=== PATIENT | male | born 1975 | race Caucasian/White ===

== ENCOUNTER 2017-07-12 17:19 | Emergency (ER) | payer MEDICAID ==
[~2017-07-12] VITALS: Ht 165.1 cm; Wt 80.5 kg
[~2017-07-12 17:19] MED LIST: BACTDS PO; CEPH-443 PO; DENIES; HYDR-902 PO; IBUP800T25 PO
[2017-07-12 17:27] VITALS: Ht 165.1 cm; Wt 80.5 kg
[2017-07-12] MEDS ORDERED: LIDOCAINE 2%/EPI MPF (SDV) 20 ML VIAL INJ STA (17:59)
[2017-07-12] MEDS ORDERED: TRIMETHOPRIM/SULFAMETHOX (DS) TAB PO ONE (18:00)
[2017-07-12] MEDS ORDERED: IBUPROFEN 200 MG TAB PO ONE (18:00)
[2017-07-12] MEDS ORDERED: CEPHALEXIN 500 MG CAP PO ONE (18:00)
--- NOTE | 2017-07-12 18:20 | ERD ---
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 Patient reports symptoms 7 days. Patient is here with his who is forced him to come to emergency department today Patient reports pain is 7/10 on pain scale, throbbing, hot, difficulty ambulating. ROS All systems reviewed and are negative except as per history of present illness. Medications Home Meds Active Scripts Hydrocodone/Acetaminophen ([place] 10-325 Tablet) 1 Each Tablet, 1 TAB PO Q6H Y for PAIN, #7 TAB Prov:DOROTHEA DOUGLAS PA-C 11/10/16 Ibuprofen* (Motrin*) 800 Mg Tab, 800 MG PO Q6, #30 TAB Prov:DOROTHEA DOUGLAS PA-C 11/10/16 Cephalexin* (Keflex*) 500 Mg Capsule, 500 MG PO QID for 7 Days, CAP Prov:DOROTHEA DOUGLAS PA-C 11/10/16 Sulfamethoxazole-Trimethoprim* (Bactrim* DS) 800-160 Mg Tab, 1 TAB PO BID for 7 Days, TAB Prov:DOROTHEA DOUGLAS PA-C 11/10/16 Reported Medications [Denies] No Conflict Check 05/09/11 Allergies Allergies: Coded Allergies: No Known Drug Allergies (Verified Allergy, Mild, 05/09/11) PMhx/Soc History of Surgery: No Anesthesia Reaction: No Hx Neurological Disorder: No Hx Respiratory Disorders: No Hx Cardiac Disorders: No Hx Psychiatric Problems: No Hx Miscellaneous Medical Probl: No Hx Alcohol Use: No Hx Substance Use: No Hx Tobacco Use: No Physical Exam Vitals Vital Signs Date Time Temp Pulse Resp B/P Pulse Ox O2 Delivery O2 Flow Rate FiO2 07/12/17 17:27 100.5 106 20 117/73 97 Physical Exam Const: Well-nourished well-appearing well-hydrated no acute Head: Atraumatic Eyes: Normal Conjunctiva ENT: Normal External Ears, Nose and Mouth mucous membranes moist, Neck: Resp: Aspirations even and unlabored no respiratory distress Cardio: Abd: Skin: Right lateral calf presents with a 1 cm x 1 cm circumcised pustule soft and fluctuating on a 3 cm firm erythematous base. Site is hyper-tender to palpation Back: Ext: Neur: Awake and alert Psych: Normal Mood and Affect Results 24 hrs Current Medications Medications (Trade) Dose Ordered Sig/Vianney Route PRN Reason Start Time Stop Time Status Last Admin Dose Admin Cephalexin (Keflex) 500 mg ONCE ONCE PO 07/12/17 18:00 07/12/17 18:02 DC 07/12/17 18:12 Trimethoprim/ Sulfamethoxazole (Bactrim (Ds)) 1 tab ONCE ONCE PO 07/12/17 18:00 07/12/17 18:02 DC 07/12/17 18:12 Ibuprofen (Motrin) 400 mg ONCE ONCE PO 07/12/17 18:00 07/12/17 18:02 DC 07/12/17 18:12 Lidocaine/ Epinephrine (Xylocaine 2%/ Epi Mpf(Sdv)) 20 ml ONCE STAT INJ 07/12/17 17:59 07/12/17 18:02 DC Procedures/MDM Abscess Incision and Drainage with irrigation by me: Right lateral calf Location: Right lateral calf Anesthesia: Local 2% Lidocaine with epinephrine Technique: Irrigated. Disrupted loculations w/ instrumentation Packin cm sterile packing Complications: Neurovascularly intact post procedure This 41-year-old male patient presents to emergency room with a right lateral abscess. 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 I have little suspicion for necrotizing fasciitis, osteomyelitis, sebaceous cyst, or cancerous lesion. Symptoms and history consistent with a subcutaneous abscess. Incision and drainage performed by myself see above.Exam and w/u not consistent w/ sepsis, deep space infection, or foreign body.48 hour wound check. Scar minimization instructions given. Patient started on oral Keflex 500 mg and double strength Bactrim while in emergency department, 400 mg ibuprofen given for pain. Patient will be discharged with Keflex 500 4 times daily 10 days, Bactrim double strength 1 tab p.o. twice daily 7 days. Motrin 400 mg every 6 hours as needed pain. Leave dressing in place, return in 48 hours for wound reevaluation. If dressing becomes wet okay to change immediately. signs of infection which include increased pain, increased redness especially redness spreading towards your heart, post drainage or increased swelling. If there are any of these signs or if you are not sure return as soon as possible. I feel the patient is stable for discharge at this time. I have discussed results, examination findings, the treatment plan with the patient and family present prior to discharge. Indications for emergent reevaluation, side effects of medication were also discussed. All questions were answered. Patient verbalizes understanding and agrees with plan of care. Departure Diagnosis: Primary Impression: Abscess Condition: Good Patient Instructions: Abscess, Incision And Drainage Additional Instructions: Thank you for for coming to [facility] for your care today. Please ask your nurse or provider if you have questions about your care today and do not leave until all your questions have been answered. Please use any medications given as directed and follow-up with your doctor (or the doctor you were referred to) in the next 2-3 days. If you do not have a primary care doctor you may follow up at the [facility] (listed below). You may also use motrin and tylenol as needed for fever and/or pain unless instructed otherwise by your provider or nurse. Indications for more urgent follow-up have been discussed, but you may return to the Emergency Department at ANY time for any worrisome or worsening symptoms. If you have abdominal pain, please know that no test or exam you received is perfect and you should follow up within 8 hours for continued pain. If you had any imaging studies today, such as an X-Ray or CT Scan, these studies will be reviewed later by a radiologist. You will be called if there are important findings that were not identified today, so make sure the contact information you provided at registration is correct. If you received any narcotic pain control medicine today, such as Vicodin, Morphine or Dilaudid, your coordination and judgment may be affected for a number of hours. Please do not drive or operate heavy machinery, and you may want someone to assist you at home. If you were given a prescription for narcotic medication, be aware that it is very addictive- use sparingly and only if necessary. RICCI CHAVEZ Jul 12, 2017 18:19
[2017-07-12] MEDS ORDERED: CEPH-443 PO (18:52)
[2017-07-12] MEDS ORDERED: SULF1TAB31 PO (18:53)
[2017-07-12] MEDS ORDERED: IBUP400T22 PO (18:53)
== END 2017-07-12 19:10 | disposition home or self-care (01) ==
LOC: FTE 17:19
DX: L02.415 Cutaneous abscess of right lower limb (principal)
CPT/HCPCS: 10060; Z7502; Z7610

== ENCOUNTER 2017-07-16 19:14 | Emergency (ER) | payer MEDICAID ==
[~2017-07-16] VITALS: Ht 172.7 cm; Wt 81.5 kg
[~2017-07-16 19:14] MED LIST changes: +IBUP400T22 PO; +SULF1TAB31 PO
[2017-07-16 19:59] VITALS: Ht 172.7 cm; Wt 81.5 kg
[2017-07-16] MEDS ORDERED: CEPH-443 PO (21:29)
--- NOTE | 2017-07-16 21:44 | ERD ---
ER Documentation Chief Complaint Date/Time DATE: 07/16/17 TIME: 21:39 Chief Complaint right leg wound recheck HPI Patient is a 41-year-old male who presents to the emergency department for concerns of wound check. Patient was seen here on 07/12/17 and at that time underwent an I&D to his right lateral calf. Patient states he has been taking Bactrim however he denies taking the Keflex. He states he did not receive a prescription for Keflex despite his discharge paperwork indicating so. Patient states that the swelling and redness has improved. Patient reports minimal pain. Patient denies any fevers, chills, nausea, vomiting, worsening redness or swelling. 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 Medications Home Meds Active Scripts Cephalexin* (Keflex*) 500 Mg Capsule, 500 MG PO QID for 7 Days, CAP Prov:ARABELLA CORRALESC 07/16/17 Ibuprofen* (Motrin*) 400 Mg Tab, 400 MG PO Q6, #30 TAB Prov:KATHY,RICCI 07/12/17 Sulfamethoxazole/Trimethoprim* (Bactrim Ds* Tablet) 1 Each Tablet, 1 TAB PO BID for 7 Days, #14 TAB Prov:KATHY,RICCI 07/12/17 Cephalexin* (Keflex*) 500 Mg Capsule, 500 MG PO QID for 10 Days, CAP Prov:KATHY,RICCI 07/12/17 Hydrocodone/Acetaminophen ([place] 10-325 Tablet) 1 Each Tablet, 1 TAB PO Q6H Y for PAIN, #7 TAB Prov:DOROTHEA DOUGLASC 11/10/16 Ibuprofen* (Motrin*) 800 Mg Tab, 800 MG PO Q6, #30 TAB Prov:PRODOROTHEA TATUM-C 11/10/16 Cephalexin* (Keflex*) 500 Mg Capsule, 500 MG PO QID for 7 Days, CAP Prov:DOROTHEA DOUGLASC 11/10/16 Sulfamethoxazole-Trimethoprim* (Bactrim* DS) 800-160 Mg Tab, 1 TAB PO BID for 7 Days, TAB Prov:DOROTHEA DOUGLASC 11/10/16 Reported Medications [Denies] No Conflict Check 05/09/11 Allergies Allergies: Coded Allergies: No Known Drug Allergies (Verified Allergy, Mild, 07/16/17) PMhx/Soc Medical and Surgical Hx: pt denies Medical Hx, pt denies Surgical Hx History of Surgery: No Anesthesia Reaction: No Hx Neurological Disorder: No Hx Respiratory Disorders: No Hx Cardiac Disorders: No Hx Psychiatric Problems: No Hx Miscellaneous Medical Probl: No Hx Alcohol Use: Yes (occasional) Hx Substance Use: No Hx Tobacco Use: No Smoking Status: Never smoker Physical Exam Vitals Vital Signs Date Time Temp Pulse Resp B/P Pulse Ox O2 Delivery O2 Flow Rate FiO2 07/16/17 19:59 98.3 69 18 116/71 98 Physical Exam GENERAL: Well-developed, well-nourished male. Appears in no acute distress. HEAD: Normocephalic, atraumatic. EYES: Pupils are equally reactive bilaterally. EOMs grossly intact. No conjunctival erythema. ENT: Moist mucous membranes. No uvula deviation. No kissing tonsils. NECK: Supple. No meningismus. Normal range of motion of the neck. LUNG: Clear to auscultation bilaterally. No rhonchi, wheezing, rales or coarse breath sounds. HEART: Regular rate and rhythm. No murmurs, rubs or gallops. EXTREMITIES: Equal pulses bilaterally. No peripheral clubbing, cyanosis or edema. NEUROLOGIC: Alert and oriented. Moving all four extremities without any difficulty. Normal speech. Steady gait. SKIN: Normal color. Warm and dry. Right lateral calf with open abscess. Active yellow, purulent drainage. Surrounding area minimally erythematous. No warmth. No fluctuance. Procedures/MDM MEDICAL DECISION MAKING: This is a 41-year-old male who presents for a wound check for an abscess he had drained on 07-12-17. Patient reports taking only Bactrim. He did not receive a prescription for Keflex.. Vital signs were reviewed. Patient is afebrile. Active, yellow purulent discharge is noted from the abscess site. The wound does have opening thus no further incision and drainage is indicated. No induration or fluctuance is noted. Patient will be discharged home with a prescription of Keflex. Patient was advised to fill the prescription upon leaving the ER today. Patient advised to return to the ED in 2 days for wound recheck. Low suspicion for deep space infection, necrotizing fasciitis, or vascular injury. PRESCRIPTIONS: Keflex DISCHARGE: At this time, the patient is stable for discharge and outpatient management. Recheck advised in 2 days. Post-procedural wound care was discussed with the patient. I have instructed the patient to promptly return to the ER for any new or worsening symptoms including increasing pain, fever, warmth, redness or swelling. The patient and/or family expressed understanding of and agreement with this plan. All questions were answered. Home care instructions were provided. Disclaimer: Inadvertent spelling and grammatical errors are likely due to EHR/ dictation software use and do not reflect on the overall quality of patient care. Also, please note that the electronic time recorded on this note does not necessarily reflect the actual time of the patient encounter. Departure Diagnosis: Primary Impression: Encounter for wound re-check Additional Impression: Abscess Condition: Stable Patient Instructions: Abscess, Antiobiotic Treatment Only Referrals: [facility] YOU HAVE RECEIVED A MEDICAL SCREENING EXAM AND THE RESULTS INDICATE THAT YOU DO NOT HAVE A CONDITION THAT REQUIRES URGENT TREATMENT IN THE EMERGENCY DEPARTMENT. FURTHER EVALUATION AND TREATMENT OF YOUR CONDITION CAN WAIT UNTIL YOU ARE SEEN IN YOUR DOCTORS OFFICE WITHIN THE NEXT 1-2 DAYS. IT IS YOUR RESPONSIBILITY TO MAKE AN APPOINTMENT FOR FOLOW-UP CARE. IF YOU HAVE A PRIMARY DOCTOR --you should call your primary doctor and schedule an appointment IF YOU DO NOT HAVE A PRIMARY DOCTOR YOU CAN CALL OUR PHYSICIAN REFERRAL HOTLINE AT IF YOU CAN NOT AFFORD TO SEE A PHYSICIAN YOU CAN CHOSE FROM THE FOLLOWING [facility] [address] [facility]. [facility] [address] [facility] [facility] [address] [facility]. [facility] [address] [facility]. [facility] [address] [facility]. [facility]. [address] [facility]. [facility] YOU HAVE RECEIVED A MEDICAL SCREENING EXAM AND THE RESULTS INDICATE THAT YOU DO NOT HAVE A CONDITION THAT REQUIRES URGENT TREATMENT IN THE EMERGENCY DEPARTMENT. FURTHER EVALUATION AND TREATMENT OF YOUR CONDITION CAN WAIT UNTIL YOU ARE SEEN IN YOUR DOCTORS OFFICE WITHIN THE NEXT 1-2 DAYS. IT IS YOUR RESPONSIBILITY TO MAKE AN APPOINTMENT FOR FOLOW-UP CARE. IF YOU HAVE A PRIMARY DOCTOR --you should call your primary doctor and schedule and appointment IF YOU DO NOT HAVE A PRIMARY DOCTOR YOU CAN CALL OUR PHYSICIAN REFERRAL HOTLINE AT . IF YOU CAN NOT AFFORD TO SEE A PHYSICIAN YOU CAN CHOSE FROM THE FOLLOWING [facility] INSTITUTIONS: [facility] [address] [place] [address] [facility] [address] [place] [address] [facility] [address] [place] [address] Additional Instructions: Return in 2 days for wound recheck. Start Keflex today. Fill prescription upon leaving ER. Call your primary care doctor TOMORROW for an appointment during the next 1-2 days.See the doctor sooner or return here if your condition worsens before your appointment time. ARABELLA CORRALES PA-C Jul 16, 2017 21:44
== END 2017-07-16 21:55 | disposition home or self-care (01) ==
LOC: FTE 19:14
DX: L02.415 Cutaneous abscess of right lower limb (principal); Z48.01 Encounter for change or removal of surgical wound dressing
CPT/HCPCS: 99283

== ENCOUNTER 2018-06-12 22:46 | Emergency (ER) | END 2018-06-13 06:33 | disposition home or self-care (01) ==